=== PATIENT | female | born 1990 | race African-American/Black ===

== ENCOUNTER 2017-07-22 07:03 | Emergency (ER) | payer SELFPAY ==
[2017-07-22] MEDS ORDERED: Lidocaine 1% PF 5 ML VIAL ONE (07:18)
[2017-07-22] MEDS ORDERED: HYDROcodone/Acetaminophen 5/325 mg Tablet ONE (07:48)
[2017-07-22] MEDS ORDERED: Adacel (T-DAP) 0.5 ML VIAL ONE (07:52)
== END 2017-07-22 08:19 | disposition home or self-care (01) ==
LOC: SCSER 07:03
DX: L73.2 Hidradenitis suppurativa (principal)
CPT/HCPCS: 10060; 87070; 87077; 87186; 87205; 90471; 90715; J2001

== ENCOUNTER 2017-07-23 10:52 | Emergency (ER) | payer SELFPAY | END 2017-07-23 11:43 | disposition home or self-care (01) | LOC: SCSER 10:52 | DX: Z48.817 Encounter for surgical aftercare following surgery on the skin and subcutaneous tissue (principal); Z48.01 Encounter for change or removal of surgical wound dressing | CPT/HCPCS: 99282 ==

== ENCOUNTER 2017-10-02 04:56 | Emergency (ER) | payer SELFPAY | END 2017-10-02 06:32 | disposition home or self-care (01) | LOC: ERS 04:56 | DX: M79.89 Other specified soft tissue disorders (principal); M79.621 Pain in right upper arm | CPT/HCPCS: 99283 ==

== ENCOUNTER 2018-02-04 00:07 | Emergency (ER) | payer SELFPAY ==
[2018-02-04] MEDS ORDERED: Ibuprofen 800 MG TAB ONE (02:29)
== END 2018-02-04 02:30 | disposition home or self-care (01) ==
LOC: ERS 00:07
DX: J40 Bronchitis, not specified as acute or chronic (principal); Z71.6 Tobacco abuse counseling; Z79.899 Other long term (current) drug therapy
CPT/HCPCS: 87081; 87430; 99406

== ENCOUNTER 2018-04-04 10:20 | Outpatient (CLI) | payer OTHER | END 2018-04-04 10:21 | disposition home or self-care (01) | LOC: BICRAD 10:20 | PROVIDERS: ATTEND Internal Medicine | DX: Z02.71 Encounter for disability determination (principal); Z98.890 Other specified postprocedural states | CPT/HCPCS: 71046 ==